=== PATIENT | female | born 1960 | race Caucasian/White ===

== ENCOUNTER → 2023-04-06 09:27 | Outpatient (CLI) | payer MEDICARE, OTHER, SELFPAY ==
[2023-04-06 10:32] LABS: Appearance Urine UA CLEAR; Bilirubin Urine UA NEGATIVE (NEGATIVE); Color Urine UA YELLOW; Glucose Urine UA NEGATIVE (Negative); Hemoglobin A1C% w Est Avg Glu 5.6 % (4.0-6.0); Ketones Urine UA NEGATIVE (NEGATIVE); Leukocyte Esterase Urine UA TRACE (NEGATIVE); Nitrite Urine UA NEGATIVE (Negative); Occult Blood Urine UA NEGATIVE (Negative); Protein Urine UA NEGATIVE (Negative); Specific Gravity Urine UA <=1.005 (1.000-1.035); Urobilinogen Urine UA 0.2 E.U./dL (0.2)
[2023-04-06 10:36] LABS: Add Manual Diff / Slide Review NO; Basophils Absolute Auto 0 /uL (0-100); Basophils Percent Auto 0.4 % (0-2); Eosinophils Absolute Auto 100 /uL (0-450); Eosinophils Percent Auto 1.3 % (2-4); Hematocrit 39.9 % (36-46); Hemoglobin 13.5 g/dL (12.0-16.0); Lymphocytes Absolute Auto 2600 /uL (1100-4500); Lymphocytes Percent Auto 31.5 % (25-40); Mean Corpuscular HGB Conc 33.9 % (30-36); Mean Corpuscular Hemoglobin 28.5 PG (26-34); Mean Corpuscular Volume 83.9 fL (80-100); Monocytes Absolute Auto 900 /uL (0-900); Monocytes Percent Auto 10.3 % (3-14); Neutrophils Absolute Auto 4700 /uL (1500-7000); Neutrophils Percent Auto 56.5 % (50-75); Platelet Count 389 X10^3/uL (150-400); Red Blood Cell Count 4.75 X10^6/uL (4.0-5.2); Red Cell Distribution Width 13.6 % (11.6-14.8); White Blood Cell Count 8.3 X10^3/uL (4.5-11.0)
[2023-04-06 10:40] LABS: BUN Creatinine Ratio 17.2 (6-22); Blood Urea Nitrogen 15 mg/dL (7-17); Calcium 10.6 mg/dL (8.4-10.2); Carbon Dioxide 28 mmol/L (22-32); Chloride 104 mmol/L (98-107); Estimated Glomerular Filt Rate > 60 mL/min (>60); Glucose 90 mg/dL (80-110); HEMOLYSIS < 15 (0-50); Potassium 4.6 mmol/L (3.4-5.1); Sodium 141 mmol/L (137-145)
[2023-04-06 10:42] LABS: pH Urine UA 6.5 (4.5-8.0)
[2023-04-06 10:48] LABS: Bacteria Urine Many (>30); Culture Indicated Urine Specimen Cultured; RBC Urine None Seen (0-5/HPF); Squamous Epithelial Cell Urine 0-1 /HPF (0-5/HPF); WBC Urine 0-1/HPF (0-5/HPF)
== END ==
PROVIDERS: PCP Internal Medicine; Referring Provider Orthopaedic Surgery; Visit Provider Orthopaedic Surgery
DX: Z01.818 Encounter for other preprocedural examination (principal); R73.9 Hyperglycemia, unspecified; Z01.812 Encounter for preprocedural laboratory examination; N39.0 Urinary tract infection, site not specified
CPT/HCPCS: 36415; 80048; 81001; 83036; 85025; 87077; 87086; 87186; 93005; 93010

== ENCOUNTER 2023-10-25 11:51 | Day surgery (SDC) | payer MEDICARE, OTHER, SELFPAY ==
[2023-10-24 12:33] VITALS: BMI 22.8
[2023-10-25] VITALS (7 sets, daily range): BP systolic 145–162; BP diastolic 68–96; PULSE 103–119; RESP 12–18; TEMP 36.6–37.1; O2SAT 96–99; BMI 21.9
[2023-10-25] MEDS: LACTATED RINGERS 1,000 ML 42 ML IV (12:57)
--- NOTE | 2023-10-25 13:13 | PM.PREOP ---
Pre-operative Note Interval Note History & Physical reviewed/Exam performed by Physician: Yes Changes to H&P: No
--- NOTE | 2023-10-25 13:13 | PM.OP.1 ---
Operative Date/Time/Diagnoses Date of procedure: 10/25/23 Time of procedure: 13:13 Pre-op diagnosis: Right knee adhesions, history of right total knee arthroplasty Post-op diagnosis: same Procedure & Clinicians Procedure: Right knee manipulation under anesthesia and intra-articular injection Same procedure as scheduled: Yes Indications: This is a 63-year-old female with a history of a right total knee arthroplasty brought to the operating room because of persistent stiffness postoperatively and findings consistent with arthrofibrosis. She is brought to the operating room for manipulation under anesthesia. The procedure options risks benefits and complications were discussed in detail. She does have stiffness both in extension and in flexion and has a history of problems with postoperative stiffness after her left knee arthroplasty which required a manipulation under anesthesia. Options risks benefits and complications were discussed. She would like to proceed with a manipulation under anesthesia and has postop PT organized starting tomorrow. Surgeon: Ese Guzman Click Yes if Unassisted: Yes Anesthesia Type: General Operative Notes Findings: Moderate adhesions, good range of motion achieved with manipulation Closure Type: primary Specimen(s): none sent Blood products transfused: none Procedure in detail: Patient was brought to the operating room and underwent induction of general anesthesia. She did have substantial problems with swallowing and so a general anesthesia was selected. Her right knee was examined with anesthesia there was about a 10 degree flexion contracture and she could be flexed with minimal force to about 100?. She had minimal effusion fusion. She did not have significant tightness of her patella. She underwent a manipulation under anesthesia. Progressive gentle flexion was applied and I was able to flex her up to more than 130?. There was a palpable release of some adhesions. I specifically also manipulated her patella in order to break up any adhesions in the anterior compartment. She was then carefully hyperextended and could be hyperextended to less than 5 degree flexion contracture. I placed her through a range of motion on the knee for several cycles. Intraoperative pictures were taken. The knee was then injected with 20 cc of 0.5% Marcaine. She tolerated the procedure well. She had a minimal joint effusion. Complications: none Post-operative Condition: stable Disposition: same day surgery Plan for aftercare: Push range of motion right knee. Use ice as needed. Start therapy tomorrow. Okay to push through full range of motion and increase ambulation.
[2023-10-25] MEDS: ACETAMINOPHEN IV 1,000 MG/100 ML VIAL 400 MG IV (13:22)
[2023-10-25] MEDS: BUPIVACAINE 0.5% W/ EPI (PF) 30 ML VIAL INJ (13:35)
== END 2023-10-25 14:27 | disposition home or self-care (01) ==
PROVIDERS: PCP Internal Medicine; Referring Provider Orthopaedic Surgery; Visit Provider Orthopaedic Surgery
PROC: (CPT 27570; principal; 2023-10-25 13:45)
DX: M24.661 Ankylosis, right knee (principal); Z96.651 Presence of right artificial knee joint
CPT/HCPCS: 27570; J0136; J0330; J1100; J2405; J2704; J2765; J3010

== ENCOUNTER → 2025-01-16 12:09 | Outpatient (CLI) | payer MEDICARE, OTHER, SELFPAY ==
[2025-01-22 14:47] LABS: Add Manual Diff / Slide Review NO; Hematocrit 41.7 % (36-46); Hemoglobin 13.5 g/dL (12.0-16.0); Lymphocytes Absolute Auto 1800 /uL (1100-4500); Mean Corpuscular HGB Conc 32.4 % (30-36); Mean Corpuscular Hemoglobin 28.4 PG (26-34); Mean Corpuscular Volume 87.6 fL (80-100); Platelet Count 469 X10^3/uL (150-400)
== END ==
PROVIDERS: PCP Internal Medicine; Referring Provider Orthopaedic Surgery; Visit Provider Orthopaedic Surgery
DX: Z96.651 Presence of right artificial knee joint (principal)
CPT/HCPCS: 36415; 85025; 85651; 86140

== ENCOUNTER → 2025-04-26 09:30 | Outpatient (CLI) | payer MEDICARE, OTHER, SELFPAY ==
[2025-04-26 10:26] LABS: Add Manual Diff / Slide Review NO; Hematocrit 40.4 % (36-46); Hemoglobin 13.6 g/dL (12.0-16.0); Lymphocytes Absolute Auto 2200 /uL (1100-4500); Mean Corpuscular HGB Conc 33.8 % (30-36); Mean Corpuscular Hemoglobin 27.8 PG (26-34); Mean Corpuscular Volume 82.5 fL (80-100); Platelet Count 475 X10^3/uL (150-400)
== END ==
LOC: LAB 09:32
PROVIDERS: PCP Internal Medicine; Referring Provider Internal Medicine; Visit Provider Internal Medicine
DX: D50.9 Iron deficiency anemia, unspecified (principal)
CPT/HCPCS: 36415; 85025